=== PATIENT | female | born 1960 | race Native Hawaiian/Other Pacific Islander ===

== ENCOUNTER 2018-10-23 19:37 | Emergency (ER) | payer OTHER ==
[~2018-10-23] VITALS: Ht 157.5 cm; Wt 90.7 kg
[2018-10-23 20:17] LABS: PLATELET COUNT 344 K/uL (152-353)
[2018-10-23 20:25] LABS: POTASSIUM 3.9 mmol/L (3.6-5.2); SODIUM 141 mmol/L (136-145)
[2018-10-23 21:59] VITALS: BP 121/63; TEMP 98
== END 2018-10-23 22:00 | disposition home or self-care (01) ==
LOC: ED 19:37
PROVIDERS: Emergency Medicine
DX: R60.0 Localized edema (principal); T38.0X5A Adverse effect of glucocorticoids and synthetic analogues, initial encounter; Y92.89 Other specified places as the place of occurrence of the external cause
CPT/HCPCS: 36415; 80053; 83880; 84484; 85027; 96374; 99284; J1940

== ENCOUNTER 2018-11-20 08:38 | Outpatient (CLI) | payer OTHER | END 2018-11-20 22:50 | disposition home or self-care (01) | LOC: RAD 08:38 | DX: J44.9 Chronic obstructive pulmonary disease, unspecified (principal); Z87.891 Personal history of nicotine dependence ==

== ENCOUNTER 2018-11-21 13:31 | Outpatient (CLI) | payer OTHER ==
[2018-11-21 13:41] LABS: PLATELET COUNT 356 K/uL (152-353)
[2018-11-21 13:59] LABS: POTASSIUM 4.3 mmol/L (3.6-5.2)
== END 2018-11-21 21:37 | disposition home or self-care (01) ==
LOC: LAB 13:31
PROVIDERS: Nurse Practitioner Family
DX: Z00.00 Encounter for general adult medical examination without abnormal findings (principal); J44.9 Chronic obstructive pulmonary disease, unspecified; Z87.891 Personal history of nicotine dependence; I10 Essential (primary) hypertension; E66.8 Other obesity; Z79.899 Other long term (current) drug therapy
CPT/HCPCS: 80053; 80061; 82306; 82607; 83036; 84439; 84443; 85027

== ENCOUNTER 2018-11-29 10:53 | Outpatient (CLI) | payer OTHER | END 2018-11-29 21:51 | disposition home or self-care (01) | LOC: LABW 10:53 | DX: R60.0 Localized edema (principal); R06.02 Shortness of breath | CPT/HCPCS: 36415; 83880 ==

== ENCOUNTER 2019-01-23 09:32 | Outpatient (CLI) | payer OTHER | END 2019-01-23 21:37 | disposition home or self-care (01) | LOC: RAD 09:32 | DX: J44.9 Chronic obstructive pulmonary disease, unspecified (principal); R06.02 Shortness of breath ==

== ENCOUNTER 2019-03-29 08:18 | Outpatient (CLI) | payer OTHER | END 2019-03-29 16:00 | disposition home or self-care (01) | LOC: RESP 08:18 | DX: R06.02 Shortness of breath (principal) ==

== ENCOUNTER 2019-04-23 08:31 | Outpatient (CLI) | payer OTHER | END 2019-04-23 22:19 | disposition home or self-care (01) | LOC: CT 08:31 | DX: J44.9 Chronic obstructive pulmonary disease, unspecified (principal) ==

== ENCOUNTER 2019-12-24 13:50 | Outpatient (CLI) | payer OTHER ==
[2019-12-24 14:14] LABS: PLATELET COUNT 425 K/uL (152-353)
[2019-12-24 14:37] LABS: POTASSIUM 4.5 mmol/L (3.6-5.2)
== END 2019-12-25 00:44 | disposition home or self-care (01) ==
LOC: LAB 13:50
PROVIDERS: Nurse Practitioner Family
DX: J44.9 Chronic obstructive pulmonary disease, unspecified (principal); I10 Essential (primary) hypertension; R06.02 Shortness of breath; Z79.899 Other long term (current) drug therapy; R53.83 Other fatigue; R53.81 Other malaise; E66.9 Obesity, unspecified
CPT/HCPCS: 80053; 80061; 83036; 84439; 84443; 84481; 85027

== ENCOUNTER 2020-07-08 10:24 | Outpatient (CLI) | payer OTHER ==
[2020-07-08 10:55] LABS: PLATELET COUNT 373 K/uL (152-353)
== END 2020-07-08 21:23 | disposition home or self-care (01) ==
LOC: CT 10:24
PROVIDERS: ATTEND Internal Medicine Sleep Medicine
DX: J45.909 Unspecified asthma, uncomplicated (principal); Z87.891 Personal history of nicotine dependence
CPT/HCPCS: 36415; 85027; G0297-TC

== ENCOUNTER 2020-08-12 08:32 | Outpatient (CLI) | payer OTHER | END 2020-08-12 20:15 | disposition home or self-care (01) | LOC: RESP 08:32 | PROVIDERS: ATTEND Internal Medicine Sleep Medicine | DX: R06.02 Shortness of breath (principal) ==

== ENCOUNTER 2020-12-16 09:20 | Outpatient (CLI) | payer OTHER | END 2020-12-16 19:01 | disposition home or self-care (01) | LOC: LAB 09:20 → RAD 09:20 → LAB 19:01 | PROVIDERS: ATTEND Nurse Practitioner Family | DX: U07.1 COVID-19 (principal); R06.02 Shortness of breath; J44.9 Chronic obstructive pulmonary disease, unspecified; R53.83 Other fatigue; Z11.52 Encounter for screening for COVID-19 | CPT/HCPCS: 87635; G2023; U0003 ==

== ENCOUNTER 2022-07-01 08:32 | Outpatient (CLI) | payer OTHER | END 2022-07-01 19:14 | LOC: CT 08:32 | PROVIDERS: ATTEND Nurse Practitioner Family | DX: Z09 Encounter for follow-up examination after completed treatment for conditions other than malignant neoplasm (principal); Z87.891 Personal history of nicotine dependence ==